=== PATIENT | female | born 1955 | race Hispanic/Latino ===

== ENCOUNTER 2018-12-31 12:54 | Emergency (ER) | payer SELFPAY ==
[2018-12-31] MEDS ORDERED: Ondansetron PF 4 MG/2 ML Vial ONE (13:25)
[2018-12-31] MEDS ORDERED: Sodium Chloride 0.9% 1,000 ML ONE (13:25)
[2018-12-31] MEDS ORDERED: Dextrose 50% Abboject 50 ML SYRINGE ONE (13:43)
--- NOTE | 2018-12-31 13:48 | RAD ---
PORTABLE CHEST 12/31/18 PROVIDED CLINICAL HISTORY: Syncope. FINDINGS: Comparison 02/10/18. Cardiac and mediastinal silhouette is within normal limits. Lungs appear clear. No pleural fluid or p neumothorax apparent. IMPRESSION: No evidence for an acute cardiopulmonary process. POS: [facility]
[2018-12-31 13:59] LABS: #Basophils 0.1 thou/uL (0.0-0.2); #Eosinphils 0.1 thou/uL (0.0-0.7); #Lymphocytes 1.6 thou/uL (1.20-3.40); #Monocytes 0.6 thou/uL (0.11-0.59); #Neutrophils 6.5 thou/uL (1.40-6.50); %Basophils 0.8 % (0.0-1.0); %Eosinophils 1.2 % (0.0-10.0); %Lymphocytes 18.3 % (21.0-51.0); %Monocytes 7.1 % (0.0-10.0); %Neutrophils 72.6 % (42.0-75.0); Hemoglobin 11.9 g/dL (12.0-16.0); Mean Corpuscular HGB CONC 32.6 g/dL (32.0-36.0); Mean Corpuscular Hemoglobin 28.6 pg (27.0-31.0); Mean Corpuscular Volume 87.9 fL (78.0-98.0); Mean Platelet Volume 8.7 fL (7.4-10.4); Platelet Count 156 thou/uL (130-400); Red Blood Cell (RBC) Count 4.16 mill/uL (4.20-5.40); White Blood Cell (WBC) Count 8.9 thou/uL (4.8-10.8)
[2018-12-31 14:14] LABS: ALT (SGPT) 15 U/L (8-55); AST (SGOT) 19 U/L (5-34); Albumin 3.4 g/dL (3.4-4.8); Alkaline Phosphatase 92 U/L (40-150); Anion Gap 10 mmol/L (10-20); BUN (Urea Nitrogen) 19 mg/dL (9.8-20.1); Bilirubin, Total 0.2 mg/dL (0.2-1.2); Calc. Creatinine Clearance 0 mL/min (70-130); Calcium 8.2 mg/dL (7.8-10.44); Carbon Dioxide 25 mmol/L (23-31); Chloride 106 mmol/L (98-107); Estimated GFR-MDRD 85; Globulin 2.9 g/dL (2.4-3.5); Glucose 338 mg/dL (80-115); Potassium 3.3 mmol/L (3.5-5.1); Protein, Total 6.3 g/dL (6.0-8.3); Sodium 138 mmol/L (136-145)
[2018-12-31 14:16] LABS: Bilirubin Negative (Negative); Blood, Urine Negative (Negative); Clarity Clear (Clear); Glucose, Urine (Dipstick) 500 mg/dL (Negative); Leukocyte Negative (Negative); Nitrite Negative (Negative); Protein, Urine (Dipstick) Negative (Neg-Trace); Specific Gravity, Urine 1.015 (1.005-1.030); Urobilinogen 0.2 mg/dL (0.2-1.0)
[2018-12-31 14:16] LABS: Troponin I Less than 0.010 ng/mL (< 0.028)
--- NOTE | 2018-12-31 14:20 | CT ---
CT Brain WO Con: 12/31/2018 1:26 PM CLINICAL HISTORY: Syncope and hypoglycemia. IMAGING TECHNIQUE: Multiple CT images were obtained of the brain without IV contrast. COMPARISON: Prior CT the brain with and without contrast dated October 31, 2013 FINDINGS: Infarct: No acute infarct evident. Hemorrhage: None.. Hydrocephalus: None.. Basal cisterns: Normal.. Cerebral parenchyma: There is a stable small cortical calcification involving the right frontal lobe near the vertex. No additional abnormality is noted.. Midline shift: None.. Cerebellum: Normal. Brainstem: Normal. OTHER: Calvarium: Intact.. Visualized Paranasal sinuses: There is mild mucosal thickening within the maxillary sinuses and ethmo id air cells.. Extracranial soft tissues:Normal. IMPRESSION: 1. No acute intracanal abnormality. 2. Mild paranasal sinus disease.
[2018-12-31] MEDS ORDERED: Piperacillin/Tazobactam 3.375 GM VIAL ONE (15:40)
[2018-12-31] MEDS ORDERED: Sodium Chloride 0.9% 100 ML ONE (15:41)
== END 2018-12-31 16:00 | disposition short-term general hospital (02) ==
LOC: NAV ERS 12:54
DX: T68.XXXA Hypothermia, initial encounter (principal); E11.649 Type 2 diabetes mellitus with hypoglycemia without coma; I10 Essential (primary) hypertension; I48.91 Unspecified atrial fibrillation; Z79.01 Long term (current) use of anticoagulants; Z79.4 Long term (current) use of insulin; Z79.899 Other long term (current) drug therapy
CPT/HCPCS: 36416; 70450; 71045; 80053; 81003; 83605; 83690; 84443; 84484; 85025; 87040; 96361; 96374; 96375; J2405; J2543; J3490; J7050

== ENCOUNTER 2019-08-16 21:05 | Emergency (ER) | payer SELFPAY | END 2019-08-16 22:18 | disposition home or self-care (01) | LOC: NAV ERS 21:05 | DX: H11.31 Conjunctival hemorrhage, right eye (principal); I48.91 Unspecified atrial fibrillation; E11.9 Type 2 diabetes mellitus without complications; Z79.84 Long term (current) use of oral hypoglycemic drugs; Z79.899 Other long term (current) drug therapy | CPT/HCPCS: 99283 ==

== ENCOUNTER 2019-11-19 14:07 | Emergency (ER) | payer SELFPAY ==
[2019-11-19 14:48] LABS: Bilirubin Negative (Negative); Blood, Urine Negative (Negative); Clarity Clear (Clear); Glucose, Urine (Dipstick) >=1000 mg/dL (Negative); Leukocyte Negative (Negative); Nitrite Negative (Negative); Protein, Urine (Dipstick) Negative (Neg-Trace); Urobilinogen 0.2 mg/dL (Less than 2)
[2019-11-19] MEDS ORDERED: Morphine 4 MG/ML VIAL ONE (14:57)
[2019-11-19 14:59] LABS: #Basophils 0.1 thou/uL (0.0-0.2); #Eosinphils 0.1 thou/uL (0.0-0.7); #Lymphocytes 2.5 thou/uL (1.20-3.40); #Monocytes 0.4 thou/uL (0.11-0.59); #Neutrophils 4.6 thou/uL (1.40-6.50); %Basophils 0.7 % (0.0-1.0); %Eosinophils 1.8 % (0.0-10.0); %Lymphocytes 32.1 % (21.0-51.0); %Monocytes 5.6 % (0.0-10.0); %Neutrophils 59.8 % (42.0-75.0); Hemoglobin 13.4 g/dL (12.0-16.0); Mean Corpuscular HGB CONC 32.9 g/dL (32.0-36.0); Mean Corpuscular Hemoglobin 29.1 pg (27.0-31.0); Mean Corpuscular Volume 88.4 fL (78.0-98.0); Mean Platelet Volume 10.1 fL (7.4-10.4); Platelet Count 168 thou/uL (130-400); RBC Distribution Width 11.7 % (11.5-14.5); White Blood Cell (WBC) Count 7.8 thou/uL (4.8-10.8)
--- NOTE | 2019-11-19 15:01 | CT ---
CT abdomen and pelvis: 11/19/2019 HISTORY: Right-sided low back pain COMPARISON: 07/25/2019 TECHNIQUE: Axial CT imaging at 5 mm intervals from lung bases through pubic symphysis without contras t. Coronal and sagittal reformatted imaging obtained. FINDINGS: The lack of contrast media limits assessment of the viscera, bowel, vascular structures, an d for lymphadenopathy. The imaged lung bases are grossly unremarkable. No free intraperitoneal air is noted. The hepatic parenchyma is hypodense, suggesting steatosis. The spleen, adrenal glands, and pancreas d emonstrate no acute findings. Pancreatic parenchymal volume loss is noted, a stable finding. No evidence for obstructive uropathy/hydronephrosis or nephrolithiasis is seen on either side. As seen on the prior examination, there is an exophytic hypodense lesion emanating from the upper rachell e of the right kidney measuring 4.1 cm, consistent with a stable upper pole right renal cyst. There is prominent stool seen within the colon, particularly in the region of the transverse colon. N o evidence for bowel inflammatory change or obstruction. The appendix appears unremarkable. Review of the osseous structures demonstrates lower lumbar spine facet hypertrophy. No worrisome lyti c or blastic bone lesion. No acute osseous abnormality. IMPRESSION: No evidence for obstructive uropathy or nephrolithiasis.
[2019-11-19] MEDS ORDERED: Ketorolac Tromethamine 30 MG/ML VIAL ONE (15:03)
[2019-11-19 15:19] LABS: ALT (SGPT) 19 U/L (8-55); AST (SGOT) 15 U/L (5-34); Albumin 3.8 g/dL (3.4-4.8); Alkaline Phosphatase 81 U/L (40-110); Anion Gap 13 mmol/L (10-20); BUN (Urea Nitrogen) 12 mg/dL (9.8-20.1); Bilirubin, Total 0.4 mg/dL (0.2-1.2); Calc. Creatinine Clearance 0 mL/min (70-130); Calcium 9.1 mg/dL (7.8-10.44); Carbon Dioxide 29 mmol/L (23-31); Chloride 97 mmol/L (98-107); Estimated GFR-MDRD 77; Globulin 2.9 g/dL (2.4-3.5); Glucose 346 mg/dL (80-115); Protein, Total 6.7 g/dL (6.0-8.3); Sodium 135 mmol/L (136-145)
== END 2019-11-19 15:25 | disposition home or self-care (01) ==
LOC: NAV ERS 14:07
DX: M54.5 Low back pain (principal); I10 Essential (primary) hypertension; I48.91 Unspecified atrial fibrillation; I49.9 Cardiac arrhythmia, unspecified; E11.9 Type 2 diabetes mellitus without complications; Z79.4 Long term (current) use of insulin; Z79.01 Long term (current) use of anticoagulants; Z79.899 Other long term (current) drug therapy
CPT/HCPCS: 74176; 80053; 81003; 85025; 96372; J1885; J2270

== ENCOUNTER 2020-11-15 18:54 | Emergency (ER) | payer SELFPAY ==
[2020-11-15] MEDS ORDERED: traMADol HCl 50 MG TAB ONE (20:10)
[2020-11-16 11:59] LABS: SARS-CoV-2 NAA Rapid Test Not Detected (NotDetected)
== END 2020-11-15 20:09 | disposition home or self-care (01) ==
LOC: NAV ERS 18:54
DX: J01.90 Acute sinusitis, unspecified (principal); E11.9 Type 2 diabetes mellitus without complications
CPT/HCPCS: 0240U; 99283

== ENCOUNTER 2020-12-31 21:38 | Emergency (ER) | payer SELFPAY ==
[2020-12-31] MEDS ORDERED: Diphenoxylate HCl/Atropine Tablet ONE (22:53)
== END 2020-12-31 23:18 | disposition home or self-care (01) ==
LOC: NAV ERS 21:38
DX: R19.7 Diarrhea, unspecified (principal); R10.9 Unspecified abdominal pain; R11.0 Nausea; I48.91 Unspecified atrial fibrillation; E11.9 Type 2 diabetes mellitus without complications; Z79.4 Long term (current) use of insulin; Z79.899 Other long term (current) drug therapy
CPT/HCPCS: 96372; 99283; J0500

== ENCOUNTER 2021-02-12 00:27 | Emergency (ER) | payer OTHER, SELFPAY | END 2021-02-12 01:51 | disposition home or self-care (01) | LOC: NAV ERS 00:27 | DX: E11.649 Type 2 diabetes mellitus with hypoglycemia without coma (principal); I48.91 Unspecified atrial fibrillation | CPT/HCPCS: 36416; 99284 ==

== ENCOUNTER 2021-05-15 19:20 | Emergency (ER) | payer SELFPAY ==
[2021-05-15] MEDS ORDERED: Lidocaine 1% w/Epinephrine 1:100K 20 ML VIAL ONE (19:31)
[2021-05-16 15:48] LABS: SARS-CoV-2 PCR by NAA Not Detected (NotDetected)
== END 2021-05-15 21:00 | disposition home or self-care (01) ==
LOC: NAV ERS 19:20
DX: J06.9 Acute upper respiratory infection, unspecified (principal); I48.91 Unspecified atrial fibrillation; E11.9 Type 2 diabetes mellitus without complications; Z87.19 Personal history of other diseases of the digestive system; Z20.822 Contact with and (suspected) exposure to COVID-19
CPT/HCPCS: 99283; U0003; U0005

== ENCOUNTER 2022-01-30 21:16 | Emergency (ER) | payer MEDICARE, SELFPAY ==
[2022-01-30] MEDS ORDERED: Sodium Chloride 0.9% 1,000 ML ONE ×2 (21:53→22:51)
[2022-01-30] MEDS ORDERED: Ondansetron PF 4 MG/2 ML Vial ONE (21:53)
[2022-01-30 22:14] LABS: Bilirubin Negative (Negative); Blood, Urine Negative (Negative); Clarity Clear (Clear); Glucose, Urine (Dipstick) 500 mg/dL (Negative); Ketone, Urine Trace mg/dL (Negative); Leukocyte Negative (Negative); Nitrite Negative (Negative); Protein, Urine (Dipstick) Negative (Neg-Trace); Specific Gravity, Urine 1.025 (1.005-1.030); Urobilinogen 0.2 mg/dL (Less than 2); pH, Urine 5.5 (5.0-9.0)
[2022-01-30 22:15] LABS: #Basophils 0.1 thou/uL (0.0-0.2); #Eosinphils 0.2 thou/uL (0.0-0.7); #Lymphocytes 3.2 thou/uL (1.20-3.40); #Monocytes 0.7 thou/uL (0.11-0.59); %Basophils 0.9 % (0.0-1.0); %Eosinophils 1.9 % (0.0-10.0); %Lymphocytes 31.1 % (21.0-51.0); %Monocytes 7.2 % (0.0-10.0); %Neutrophils 58.9 % (42.0-75.0); Hemoglobin 12.8 g/dL (12.0-16.0); Mean Corpuscular HGB CONC 31.9 g/dL (32.0-36.0); Mean Corpuscular Hemoglobin 28.9 pg (27.0-31.0); Mean Corpuscular Volume 90.7 fL (78.0-98.0); Mean Platelet Volume 9.1 fL (7.4-10.4); Platelet Count 203 thou/uL (130-400); Red Blood Cell (RBC) Count 4.41 mill/uL (4.20-5.40); White Blood Cell (WBC) Count 10.2 thou/uL (4.8-10.8)
[2022-01-30 22:27] LABS: ALT (SGPT) 20 U/L (8-55); AST (SGOT) 15 U/L (5-34); Albumin 3.9 g/dL (3.4-4.8); Alkaline Phosphatase 89 U/L (40-110); Anion Gap 18 mmol/L (10-20); BUN (Urea Nitrogen) 24 mg/dL (9.8-20.1); Bilirubin, Total 0.3 mg/dL (0.2-1.2); Calc. Creatinine Clearance 0 mL/min (70-130); Calcium 9.8 mg/dL (7.8-10.44); Carbon Dioxide 24 mmol/L (23-31); Chloride 104 mmol/L (98-107); Globulin 2.6 g/dL (2.4-3.5); Glucose 209 mg/dL (80-115); Lipase 14 U/L (8-78); Potassium 4.2 mmol/L (3.5-5.1); Protein, Total 6.5 g/dL (5.8-8.1); Sodium 142 mmol/L (136-145)
[2022-01-30] MEDS ORDERED: Pantoprazole 40 MG VIAL ONE (22:51)
[2022-01-30] MEDS ORDERED: traMADol HCl 50 MG TAB ONE (22:53)
[2022-01-30] MEDS ORDERED: Metoclopramide HCl 10 MG/2 ML VIAL ONE (23:45)
== END 2022-01-31 00:19 | disposition home or self-care (01) ==
LOC: NAV ERS 21:16
DX: E11.43 Type 2 diabetes mellitus with diabetic autonomic (poly)neuropathy (principal); K31.84 Gastroparesis; E86.9 Volume depletion, unspecified; I48.91 Unspecified atrial fibrillation
CPT/HCPCS: 36416; 74176; 80053; 81003; 83690; 85025; 96361; 96365; 96375; C9113; J2405; J2765; J7050

== ENCOUNTER 2022-04-13 09:40 | Emergency (ER) | payer MEDICARE, OTHER ==
[2022-04-13] MEDS ORDERED: Nitroglycerin 0.4 MG TAB (25 Tab Bottle) ONE (10:02)
[2022-04-13] MEDS ORDERED: Aspirin Chewable 81 MG TAB ONE (10:02)
[2022-04-13 10:23] LABS: #Basophils 0.1 thou/uL (0.0-0.2); #Eosinphils 0.2 thou/uL (0.0-0.7); #Lymphocytes 2.6 thou/uL (1.20-3.40); #Monocytes 0.5 thou/uL (0.11-0.59); #Neutrophils 4.1 thou/uL (1.40-6.50); %Basophils 0.9 % (0.0-1.0); %Eosinophils 2.3 % (0.0-10.0); %Lymphocytes 35.1 % (21.0-51.0); %Monocytes 6.5 % (0.0-10.0); %Neutrophils 55.2 % (42.0-75.0); Hemoglobin 12.2 g/dL (12.0-16.0); Mean Corpuscular HGB CONC 31.8 g/dL (32.0-36.0); Mean Corpuscular Hemoglobin 28.6 pg (27.0-31.0); Mean Corpuscular Volume 89.7 fL (78.0-98.0); Mean Platelet Volume 9.6 fL (7.4-10.4); Platelet Count 211 thou/uL (130-400); RBC Distribution Width 11.9 % (11.5-14.5); Red Blood Cell (RBC) Count 4.27 mill/uL (4.20-5.40); White Blood Cell (WBC) Count 7.4 thou/uL (4.8-10.8)
[2022-04-13 10:39] LABS: ALT (SGPT) 36 U/L (8-55); AST (SGOT) 32 U/L (5-34); Albumin 3.9 g/dL (3.4-4.8); Alkaline Phosphatase 95 U/L (40-110); Anion Gap 16 mmol/L (10-20); BUN (Urea Nitrogen) 19 mg/dL (9.8-20.1); Bilirubin, Total 0.3 mg/dL (0.2-1.2); CK (CPK) 41 U/L (29-168); Calc. Creatinine Clearance 0 mL/min (70-130); Calcium 9.4 mg/dL (7.8-10.44); Carbon Dioxide 24 mmol/L (23-31); Chloride 101 mmol/L (98-107); Estimated GFR 94; Globulin 3.5 g/dL (2.4-3.5); Glucose 233 mg/dL (80-115); Lipase 12 U/L (8-78); Potassium 4.4 mmol/L (3.5-5.1); Protein, Total 7.4 g/dL (5.8-8.1); Sodium 137 mmol/L (136-145)
[2022-04-13] MEDS ORDERED: Mag-Al Plus 1200 MG/1200 MG/120 MG/30 ML UDCUP ONE (11:36)
[2022-04-13] MEDS ORDERED: Lidocaine Viscous Sol 2% 15 ml UD Cup ONE (11:36)
[2022-04-13] MEDS ORDERED: Nitroglycerin 2% Ointment 1 INCH/1 GM Packet ONE (12:11)
[2022-04-13 13:48] LABS: Troponin I Less than 0.010 ng/mL (< 0.028)
[2022-04-13 15:12] LABS: SARS-CoV-2 NAA Rapid Test Not Detected (NotDetected)
== END 2022-04-13 16:25 | disposition short-term general hospital (02) ==
LOC: NAV ERS 09:40
DX: R07.9 Chest pain, unspecified (principal); E11.9 Type 2 diabetes mellitus without complications; Z79.4 Long term (current) use of insulin; Z79.899 Other long term (current) drug therapy
CPT/HCPCS: 71045; 80053; 82550; 83690; 84484 ×2; 85025; 93005; 99285; U0002; 36415

== ENCOUNTER 2022-07-14 18:13 | Emergency (ER) | payer OTHER, MEDICARE ==
[2022-07-14] MEDS ORDERED: traMADol HCl 50 MG TAB ONE (19:14)
[2022-07-14] MEDS ORDERED: Methocarbamol 500 MG TAB PO SCH (19:30)
[2022-07-14] MEDS ORDERED: Lidocaine 5% Patch TD SCH (19:30)
[2022-07-15] MEDS ORDERED: Transdermal Patch Removal TOP SCH (08:00)
== END 2022-07-14 19:45 | disposition home or self-care (01) ==
LOC: NAV ERS 18:13
DX: S23.41XA Sprain of ribs, initial encounter (principal); S20.219A Contusion of unspecified front wall of thorax, initial encounter; E11.9 Type 2 diabetes mellitus without complications; I10 Essential (primary) hypertension; E78.5 Hyperlipidemia, unspecified; W01.0XXA Fall on same level from slipping, tripping and stumbling without subsequent striking against object, initial encounter; Z79.899 Other long term (current) drug therapy
CPT/HCPCS: 71046

== ENCOUNTER 2023-05-20 18:23 | Emergency (ER) | payer SELFPAY ==
[2023-05-20] MEDS ORDERED: Ondansetron PF 4 MG/2 ML Vial ONE (18:52)
[2023-05-20] MEDS ORDERED: Aspirin Chewable 81 MG TAB ONE (18:52)
[2023-05-20 18:59] LABS: #Basophils 0.1 thou/uL (0.0-0.2); #Eosinphils 0.2 thou/uL (0.0-0.7); #Lymphocytes 3.1 thou/uL (1.20-3.40); #Monocytes 0.6 thou/uL (0.11-0.59); #Neutrophils 4.7 thou/uL (1.40-6.50); %Basophils 0.8 % (0.0-1.0); %Eosinophils 2.6 % (0.0-10.0); %Lymphocytes 35.7 % (21.0-51.0); %Monocytes 6.9 % (0.0-10.0); %Neutrophils 54.1 % (42.0-75.0); Hematocrit 38.4 % (36.0-47.0); Hemoglobin 12.7 g/dL (12.0-16.0); Mean Corpuscular HGB CONC 33.1 g/dL (32.0-36.0); Mean Corpuscular Hemoglobin 29.4 pg (27.0-31.0); Mean Corpuscular Volume 88.7 fl (78.0-98.0); Mean Platelet Volume 9.7 fL (7.4-10.4); Platelet Count 195 10x3/uL (130-400); RBC Distribution Width 11.7 % (11.5-14.5); Red Blood Cell (RBC) Count 4.33 mill/uL (4.20-5.40); White Blood Cell (WBC) Count 8.7 10x3/uL (4.8-10.8)
[2023-05-20 19:14] LABS: Troponin I Less than 0.010 ng/mL (< 0.028)
[2023-05-20 19:36] LABS: Bilirubin Negative (Negative); Blood, Urine Trace (Negative); Clarity Clear (Clear); Glucose, Urine (Dipstick) 500 mg/dL (Negative); Ketone, Urine Trace mg/dL (Negative); Leukocyte Negative (Negative); Nitrite Negative (Negative); Protein, Urine (Dipstick) Negative (Neg-Trace); Specific Gravity, Urine 1.025 (1.005-1.030); Urobilinogen 0.2 mg/dL (Less than 2); pH, Urine 5.5 (5.0-9.0)
[2023-05-20 19:36] LABS: ALT (SGPT) 22 U/L (8-55); AST (SGOT) 18 U/L (5-34); Albumin 4.1 g/dL (3.4-4.8); Alkaline Phosphatase 91 U/L (40-110); Anion Gap 17 mmol/L (10-20); BUN (Urea Nitrogen) 23 mg/dL (9.8-20.1); Bilirubin, Total 0.3 mg/dL (0.2-1.2); Calc. Creatinine Clearance 0 mL/min (70-130); Calcium 9.8 mg/dL (7.8-10.44); Carbon Dioxide 22 mmol/L (23-31); Chloride 105 mmol/L (98-107); Estimated GFR 81; Globulin 3.3 g/dL (2.4-3.5); Glucose 241 mg/dL (80-115); Lipase 8 U/L (8-78); Potassium 4.1 mmol/L (3.5-5.1); Protein, Total 7.4 g/dL (5.8-8.1); Sodium 140 mmol/L (136-145)
[2023-05-20 19:46] LABS: RBC/HPF 0-3 HPF (0-3); Squamous Epithelial 0-3 HPF (0-3)
== END 2023-05-20 20:23 | disposition home or self-care (01) ==
LOC: NAV ERS 18:23
DX: S29.012A Strain of muscle and tendon of back wall of thorax, initial encounter (principal); E11.9 Type 2 diabetes mellitus without complications; K21.9 Gastro-esophageal reflux disease without esophagitis; I10 Essential (primary) hypertension; E78.00 Pure hypercholesterolemia, unspecified; I48.91 Unspecified atrial fibrillation; Z79.01 Long term (current) use of anticoagulants; Z79.899 Other long term (current) drug therapy; X50.0XXA Overexertion from strenuous movement or load, initial encounter
CPT/HCPCS: 71045; 80053; 81001; 83690; 84484; 85025; 93005; 96374; J2405

== ENCOUNTER 2025-01-18 15:38 | Emergency (ER) | payer OTHER, MEDICARE ==
[2025-01-18] MEDS ORDERED: Ondansetron PF 4 MG/2 ML Vial ONE (17:12)
[2025-01-18] MEDS ORDERED: Sodium Chloride 0.9% 1,000 ML ONE (17:12)
[2025-01-18 17:37] LABS: #Basophils 0.1 thou/uL (0.0-0.2); #Eosinophils 0.1 thou/uL (0.0-0.7); #Lymphocytes 2.3 thou/uL (1.20-3.40); #Monocytes 0.5 thou/uL (0.11-0.59); #Neutrophils 3.9 thou/uL (1.40-6.50); %Lymphocytes 33.9 % (21.0-51.0); Hematocrit 43.4 % (36.0-47.0); Hemoglobin 14.5 g/dL (12.0-16.0); Mean Corpuscular HGB CONC 33.5 g/dL (32.0-36.0); Mean Corpuscular Hemoglobin 27.9 pg (27.0-31.0); Mean Corpuscular Volume 83.3 fl (78.0-98.0); Mean Platelet Volume 8.3 fL (7.4-10.4); Platelet Count 157 10x3/uL (130-400); RBC Distribution Width 11.8 % (11.5-14.5); Red Blood Cell (RBC) Count 5.21 mill/uL (4.20-5.40); White Blood Cell (WBC) Count 6.9 10x3/uL (4.8-10.8)
[2025-01-18 17:51] LABS: ALT (SGPT) 119 U/L (Less than 34); AST (SGOT) 80 U/L (11-34); Albumin 3.9 g/dL (3.1-4.5); Alkaline Phosphatase 123 U/L (40-110); Anion Gap 12 mmol/L (10-20); BUN (Urea Nitrogen) 21 mg/dL (9.8-20.1); Bilirubin, Total 0.5 mg/dL (0.3-1.2); Calc. Creatinine Clearance 0 mL/min (70-130); Calcium 9.6 mg/dL (7.8-10.44); Carbon Dioxide 27 mmol/L (23-31); Chloride 107 mmol/L (98-107); Estimated GFR 98; Globulin 3.5 g/dL (2.4-3.5); Glucose 117 mg/dL (80-115); Protein, Total 7.4 g/dL (5.8-8.1); Sodium 142 mmol/L (136-145)
[2025-01-18] MEDS ORDERED: metroNIDAZOLE 500 MG TAB ONE (18:57)
[2025-01-18] MEDS ORDERED: Sulfameth/Trimethoprim DS 800-160mg TAB ONE (18:57)
== END 2025-01-18 19:04 | disposition home or self-care (01) ==
LOC: NAV ERS 15:38
DX: K52.9 Noninfective gastroenteritis and colitis, unspecified (principal); R74.8 Abnormal levels of other serum enzymes; E11.9 Type 2 diabetes mellitus without complications; I10 Essential (primary) hypertension; I48.91 Unspecified atrial fibrillation
CPT/HCPCS: 74177; 80053; 85025; 96374; J2405; J7030

== ENCOUNTER 2025-06-18 18:34 | Emergency (ER) | payer MEDICARE ==
[~2025-06-18 18:34] MED LIST: Iopamidol 370 76% 100 ML VIAL ONE
[2025-06-18] MEDS ORDERED: Ondansetron PF 4 MG/2 ML Vial ONE (19:57)
[2025-06-18 20:32] LABS: Glucose, Urine (Dipstick) >=1000 mg/dL (Negative); Leukocyte Negative (Negative); Protein, Urine (Dipstick) Negative (Neg-Trace); Specific Gravity, Urine 1.015 (1.005-1.030)
[2025-06-18 20:34] LABS: #Basophils 0.1 thou/uL (0.0-0.2); #Eosinophils 0.0 thou/uL (0.0-0.7); #Lymphocytes 0.8 thou/uL (1.20-3.40); #Monocytes 0.5 thou/uL (0.11-0.59); #Neutrophils 5.7 thou/uL (1.40-6.50); %Basophils 1.2 % (0.0-1.0); %Eosinophils 0.3 % (0.0-10.0); %Lymphocytes 11.2 % (21.0-51.0); %Monocytes 6.4 % (0.0-10.0); %Neutrophils 80.9 % (42.0-75.0); Hematocrit 45.2 % (36.0-47.0); Hemoglobin 14.9 g/dL (12.0-16.0); Mean Corpuscular Hemoglobin 29.7 pg (27.0-31.0); Mean Corpuscular Volume 90.2 fl (78.0-98.0); Platelet Count 164 10x3/uL (130-400); Red Blood Cell (RBC) Count 5.01 mill/uL (4.20-5.40); White Blood Cell (WBC) Count 7.1 10x3/uL (4.8-10.8)
[2025-06-18 20:44] LABS: ALT (SGPT) 18 U/L (Less than 34); AST (SGOT) 30 U/L (11-34); Albumin 4.4 g/dL (3.1-4.5); Alkaline Phosphatase 79 U/L (40-110); Anion Gap 18 mmol/L (10-20); BUN (Urea Nitrogen) 17 mg/dL (9.8-20.1); Bilirubin, Total 0.4 mg/dL (0.3-1.2); Calc. Creatinine Clearance 0 mL/min (70-130); Calcium 9.2 mg/dL (7.8-10.44); Carbon Dioxide 24 mmol/L (23-31); Chloride 104 mmol/L (98-107); Globulin 3.5 g/dL (2.4-3.5); Glucose 185 mg/dL (80-115); Lipase 13 U/L (8-78); Potassium 4.1 mmol/L (3.5-5.1); Sodium 142 mmol/L (136-145)
[2025-06-18 20:46] LABS: Bacteria/HPF Rare-Few HPF (None Seen); CAUTI Indications for Culture Dysuria,urgency,freq; RBC/HPF 0-3 HPF (0-3); WBC/HPF 0-3 HPF (0-3); Yeast-Budding Rare HPF (None Seen)
[2025-06-18 20:47] LABS: Urine Culture Reflex No No
[2025-06-18] MEDS ORDERED: Acetaminophen 325 MG TAB ONE (20:57)
== END 2025-06-18 21:48 | disposition home or self-care (01) ==
LOC: NAV ERS 18:34
DX: U07.1 COVID-19 (principal); I48.91 Unspecified atrial fibrillation; E11.9 Type 2 diabetes mellitus without complications; I10 Essential (primary) hypertension
CPT/HCPCS: 74177; 80053; 81001; 83690; 85025; 87428; 96374; 96375; J2272; J2405; J7030; Q9967